=== PATIENT | male | born 1950 | race Hispanic/Latino ===

== ENCOUNTER 2018-08-04 21:01 | Emergency (ER) | payer OTHER, MEDICARE ==
[2018-08-04] MEDS ORDERED: Metoclopramide HCl 10 MG/2 ML VIAL ONE (21:31)
[2018-08-04] MEDS ORDERED: Ketorolac Tromethamine 30 MG/ML VIAL ONE (21:31)
[2018-08-04] MEDS ORDERED: Dexamethasone 10 MG/ML VIAL ONE (21:31)
[2018-08-04] MEDS ORDERED: Ondansetron PF 4 MG/2 ML Vial ONE (21:31)
--- NOTE | 2018-08-04 22:04 | RAD ---
PORTABLE CHEST: HISTORY: Chest pain. Dizziness. Syncope. FINDINGS: Heart size is at the upper limits of normal for the portable technique. There are atherosclerotic ch anges of the aorta. The lungs are clear of any infiltrative process. IMPRESSION: No active intrathoracic disease. POS: [facility]
--- NOTE | 2018-08-04 22:05 | CT ---
CT BRAIN WITHOUT CONTRAST: HISTORY: Headache. Dizziness. FINDINGS: Ventricular and cisternal system is within normal limits. There are no signs of intracerebral hemorr hansa or extraaxial fluid collection. 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 It was present on a previous MRI study in 2009. The mastoid air cells and visualized sinuses are clear. IMPRESSION: No acute intracranial abnormalities. POS: [facility]
[2018-08-04 22:11] LABS: #Lymphocytes 1.2 thou/uL (1.20-3.40); #Monocytes 0.3 thou/uL (0.11-0.59); #Neutrophils 7.3 thou/uL (1.40-6.50); %Basophils 0.3 % (0.0-1.0); %Eosinophils 0.5 % (0.0-10.0); %Lymphocytes 13.9 % (21.0-51.0); %Monocytes 3.6 % (0.0-10.0); %Neutrophils 81.7 % (42.0-75.0); Hemoglobin 15.1 g/dL (14.0-18.0); Mean Corpuscular HGB CONC 33.4 g/dL (32.0-36.0); Mean Corpuscular Hemoglobin 30.4 pg (27.0-31.0); Mean Platelet Volume 7.4 fL (7.4-10.4); Platelet Count 251 thou/uL (130-400); RBC Distribution Width 12.1 % (11.5-14.5); Red Blood Cell (RBC) Count 4.98 mill/uL (4.70-6.10)
[2018-08-04 22:36] LABS: ALT (SGPT) 21 U/L (8-55); AST (SGOT) 21 U/L (5-34); Albumin 4.2 g/dL (3.4-4.8); Alkaline Phosphatase 86 U/L (40-150); Anion Gap 11 mmol/L (10-20); BUN (Urea Nitrogen) 18 mg/dL (8.4-25.7); Bilirubin, Total 0.3 mg/dL (0.2-1.2); Calc. Creatinine Clearance 0 mL/min (70-130); Calcium 9.2 mg/dL (7.8-10.44); Carbon Dioxide 27 mmol/L (23-31); Chloride 103 mmol/L (98-107); Estimated GFR-MDRD Greater than 90; Globulin 2.9 g/dL (2.4-3.5); Glucose 111 mg/dL (80-115); Lipase 39 U/L (8-78); Potassium 3.9 mmol/L (3.5-5.1); Protein, Total 7.1 g/dL (5.8-8.1); Sodium 137 mmol/L (136-145)
[2018-08-04 22:40] LABS: CKMB 1.6 ng/mL (0-6.6); Troponin I Less than 0.010 ng/mL (< 0.028)
== END 2018-08-04 23:06 | disposition home or self-care (01) ==
LOC: ERS 21:01
DX: H81.09 Meniere's disease, unspecified ear (principal); Z79.899 Other long term (current) drug therapy
CPT/HCPCS: 70450; 71045; 80053; 82553; 83690; 84484; 85025; 93005; 96365; 96375; J1100; J1885; J2405; J2765

== ENCOUNTER 2018-12-09 08:55 | Outpatient (CLI) | payer OTHER, MEDICARE ==
--- NOTE | 2018-12-09 09:29 | BD ---
Exam: DEXA bone density study: HISTORY: Osteoporosis COMPARISON: 05/09/2016 Lumbar Spine: BMD (g/cm2) L1 0.861 T-Score: -1.9 L2 0.879 T-Score: -2.0 L3 0.865 T-Score: -2.2 L4 0.810 T-Score: -2.4 L1-L4 0.855 T-Score: - 2.4 Femoral Neck: 0.601 T-Score: -2.4 Total Femur: 0.795 T-Score: -1.6 Lumbar Spine: Evidence for osteopenia with increased risk for fracture Left Hip: Evidence for osteopenia with increased risk for fracture. IMPRESSION: No significant change from prior study. FRAX score: Major osteoporotic fracture 9%, hip fracture 2.5%. Transcribed Date/Time: 12/09/2018 9:45 AM
== END 2018-12-09 08:56 | disposition home or self-care (01) ==
LOC: BICMAMMO 08:55
PROVIDERS: ATTEND Internal Medicine Rheumatology
DX: M81.0 Age-related osteoporosis without current pathological fracture (principal)
CPT/HCPCS: 77080

== ENCOUNTER 2019-03-16 16:07 | Outpatient (CLI) | payer OTHER ==
--- NOTE | 2019-03-16 16:24 | RAD ---
Left shoulder 3 views HISTORY: Left shoulder pain with popping. FINDINGS: Acromioclavicular alignment are maintained. No significant osteophytosis. No acute fracture , dislocation, or aggressive osseous. Calcification within the partially visualized aortic arch. IMPRESSION: No acute osseous abnormalities are demonstrated. Atherosclerosis.
--- NOTE | 2019-03-16 16:25 | RAD ---
Right shoulder 3 views HISTORY: Right shoulder pain. Bicipital tendinitis. FINDINGS: Acromioclavicular and glenohumeral alignment are maintained. No acute fracture, dislocation , or aggressive osseous erosions. IMPRESSION: No acute osseous abnormalities are demonstrated.
== END 2019-03-16 16:08 | disposition home or self-care (01) ==
LOC: BICRAD 16:07
PROVIDERS: ATTEND Internal Medicine Rheumatology
DX: M75.21 Bicipital tendinitis, right shoulder (principal); M75.22 Bicipital tendinitis, left shoulder

== ENCOUNTER 2019-05-19 09:24 | Outpatient (CLI) | payer OTHER ==
--- NOTE | 2019-05-19 15:29 | MRI ---
MRI RIGHT SHOULDER WITHOUT CONTRAST: HISTORY: Bilateral shoulder pain for three months. FINDINGS: There is mild arthrosis of the AC joint with a laterally downsloping acromion. The infraspinatus tendon is intact. There is a full-thickness partial-width supraspinatus tendon tea r. The tear involves almost the entire supraspinatus tendon. Some of the posterior fibers, although there is a significant undersurface component to the tear, do appear to be intact. The tendon is on ly retracted by 5 to 6 mm. The tear occurs approximately a centimeter from its insertion on the grea ter tuberosity. The AP dimension of the full-thickness component of the tear is probably 12 to 13 mm . Again, with a significant undersurface component to the tear of the residual posterior fibers. Subscapularis muscle and tendon area intact and the biceps tendon is normal in position within the bi cipital groove. A sublabral sulcus is present. There is some degeneration to the superior labrum and what appears to be a chronic appearing SLAP type tear. There are mild arthritic changes of the glenohumeral joint s pace. The inferior glenohumeral ligament is intact. No significant rotator cuff muscle atrophy. IMPRESSION: Full-thickness partial-width supraspinatus tendon tear. The full-thickness component of the tear inv olves the majority of the tendon. There is a significant high-grade undersurface component involving some of the more posterior fibers. No significant muscle atrophy. POS: [facility]
--- NOTE | 2019-05-19 15:34 | MRI ---
MRI RIGHT SHOULDER WITHOUT CONTRAST: HISTORY: Right shoulder pain. FINDINGS: There is mild arthrosis of the AC joint. There is a full-thickness, partial-width supraspinatus tendon tear. This tear is very similar to the opposite shoulder. The full-thickness component involves the anterior half of the tendon. It is re tracted by approximately 10 mm. The AP dimension of the full-thickness component of the tear is appr oximately 12 mm. There is a significant undersurface component to this tear. The infraspinatus tend on does appear to be intact. There does appear to be a small delaminating tear extending into the mu sculotendinous junction of the infraspinatus. There is tendinosis of the superior fibers of the subscapularis tendon. The biceps tendon is in a no rmal position within the bicipital groove. There is some fluid in the biceps tendon sheath, suggesti ng a mild tenosynovitis. There are some arthritic changes of the glenohumeral joint space. The inferior glenohumeral ligament is intact. No significant rotator cuff muscle atrophy. IMPRESSION: Full-thickness, partial-width supraspinatus tendon tear. The full-thickness component of the tear in volves more of the anterior half with a significant high grade undersurface component involving the p osterior half of the tendon. No significant rotator cuff muscle atrophy. POS: [facility]
== END 2019-05-19 09:25 | disposition home or self-care (01) ==
LOC: SCSMRI 09:24
PROVIDERS: ATTEND Internal Medicine Rheumatology
DX: M75.21 Bicipital tendinitis, right shoulder (principal); M75.22 Bicipital tendinitis, left shoulder; S46.811A Strain of other muscles, fascia and tendons at shoulder and upper arm level, right arm, initial encounter

== ENCOUNTER 2023-11-27 11:05 | Outpatient (CLI) | payer OTHER ==
[2023-11-27 13:07] LABS: Hematocrit 45.9 % (38.8-50.0); Hemoglobin 15.7 g/dL (13.5-17.5); Mean Corpuscular HGB CONC 34.2 g/dL (32.0-36.0); Mean Corpuscular Hemoglobin 30.8 pg (27.0-33.0); Mean Platelet Volume 10.5 fl (7.4-10.4); Platelet Count 216 10x3/uL (150-450); RBC Distribution Width 12.9 % (11.5-14.5); White Blood Cell (WBC) Count 4.9 10x3/uL (3.5-10.5)
[2023-11-27 13:15] LABS: PTT 28.7 sec (22.0-33.0); Prothrombin Time 10.5 sec (9.5-12.1)
[2023-11-27 13:23] LABS: Anion Gap 15 mmol/L (10-20); BUN (Urea Nitrogen) 17 mg/dL (8.4-25.7); Calc. Creatinine Clearance 0 mL/min (70-130); Calcium 9.3 mg/dL (7.8-10.44); Carbon Dioxide 25 mmol/L (23-31); Chloride 106 mmol/L (98-107); Estimated GFR 94; Glucose 95 mg/dL (83-110); Potassium 4.6 mmol/L (3.5-5.1); Sodium 141 mmol/L (136-145)
[2023-11-27 14:33] LABS: Bilirubin Neg (Negative); Blood, Urine Negative (Negative); Clarity Clear (Clear); Glucose, Urine (Dipstick) Normal (Negative); Ketone, Urine Negative (Negative); Leukocyte Negative (Negative); Nitrite Negative (Negative); Protein, Urine (Dipstick) Negative (Neg-Trace); Urobilinogen Normal mg/dL (Less than 2)
[2023-11-27 15:24] LABS: Bacteria/HPF Rare-Few HPF (None Seen); RBC/HPF 0-3 HPF (0-3); Squamous Epithelial 0-3 HPF (0-3); WBC/HPF 0-3 HPF (0-3)
== END 2023-11-27 11:06 | disposition home or self-care (01) ==
LOC: LABBT 11:05
PROVIDERS: ATTEND Urology
DX: Z01.818 Encounter for other preprocedural examination (principal); C61 Malignant neoplasm of prostate; N52.01 Erectile dysfunction due to arterial insufficiency; H90.5 Unspecified sensorineural hearing loss; R10.31 Right lower quadrant pain; R10.32 Left lower quadrant pain; R86.8 Other abnormal findings in specimens from male genital organs; R68.89 Other general symptoms and signs
CPT/HCPCS: 80048; 81001; 85027; 85610; 85730; 87086; 93005; 93010